=== PATIENT | male | born 1980 | race Caucasian/White ===

== ENCOUNTER 2025-08-07 05:03 | Day surgery (SDC) | payer OTHER, SELFPAY ==
[2025-08-07] VITALS (22 sets, daily range): BP systolic 124–162; BP diastolic 72–92; PULSE 46–82; RESP 10–18; TEMP 36.1–36.7; O2SAT 92–99; BMI 34.6
--- OUTSIDE RECORDS SUMMARY | 2025-08-07 05:07 | XMS_ITS | Clinical Summary ---
Author Organization [facility] Address [address] [place] [id number] Care Team Providers Care Facilities Manager Name Role Phone Fanta Nayak MD Primary Care Provider Allergies Active Allergy Reactions Criticality Noted Date Comments Amoxicillin Shortness Of Breath Unknown 04/15/2013 Medications sertraline 100 mg tabletIndication s:Anxiety,Depres scout, recurrent Take 1 Tablet (100 mg) by mouth once daily. 93 Tablet 3 5 Active traZODone 50 mg tabletIndication s:Sleeping difficulty Take 1 Tablet (50 mg) by mouth at bedtime. 93 Tablet 3 5 Active sildenafiL (pulm.hypertensi on) 20 mg tabletIndication s:Erectile dysfunction of organic origin TAKE 1-5 TABLETS BY MOUTH 30 MINUTES TO 4 HOURS BEFORE SEXUAL ACTIVITY. MAX 100 MG/24 HOURS 45 Tablet 3 5 Active sertraline 50 mg tabletIndication s:Anxiety,Depres scout, recurrent Take 1 Tablet (50 mg) by mouth once daily in the morning. Take together with 100 mg daily for a total of 150 mg daily. 93 Tablet 3 5 Active Active Problems Problem Noted Date Diagnosed Date Class 2 severe obesity with body mass index (BMI) of 35 to 39.9 with serious comorbidity 10/04/2023 Anxiety 08/25/2015 Depression, recurrent 08/03/2014 Resolved Problems Problem Noted Date Diagnosed Date Resolved Date Anxiety state, unspecified 04/15/2013 0 10/04/2023 Immunizations Immunization Administration Dates Next Due AMB Influenza, IIV4 PF (=>6 mos Flulaval,Fluzone Fluarix)(Flu Clinic Only) 07/11/2020 COVID-19 VACCINE SPIKEVAX (M ODERNA 50MCG/0.5ML) 12YO+ PFS 01/27/2025,10/04/2023 COVID-19 vaccine (Months Of MeBio NTech 30mcg/0.3mL) 12YO+ BIVALENT PF, MDV 07/02/2022 COVID-19 vaccine (Pfizer-Bio NTech 30mcg/0.3mL) PF, MDV 12/29/2020,12/08/2020 Influenza, IIV4 10/04/2023, 2,06/08/2021,2018 Rabies Vaccine 06/01/2013, 3,05/21/2013,2012 Td (Age >=7 Years) 03/27/2019 Tdap 05/28/2006 Family History Medical History Relation Name Comments No Known Problems Brother 1 No Known Problems Brother 2 Good Health Father born 1954 No Known Problems Maternal Grandfather No Known Problems Maternal Grandmother Cancer-breast Mother born 1955 Cancer-colon Mother Other Mother 3 ppd smoking h istory Psychiatric illness Mother Anxiety Rectal cancer Mother Cancer Paternal Grandfather Lymph Other Paternal Grandfather asbesto s exposure Stroke Paternal Grandmother No Known Problems Sister Relation Name Status Comments Brother 1 Brother 2 Father Alive Maternal Grandfather Maternal Grandmother Mother Paternal Grandfather Paternal Grandmother Sister Social History Tobacco Use Types Packs/Day Years Used Date Smoking Tobacco: Never Smokeless Tobacco: Never Tobacco Cessation:Counseling Given: Yes Alcohol Use Standard Drinks/Week Comments Yes 0 (1 standard drink = 0.6 oz pur e alcohol) occassionally PHQ-2 Answer Date Recorded PHQ-2 TOTAL SCORE 3 01/27/2025 Social Connections Answer Date Recorded Do you often feel lonely or isolated from those around you? 0 01/27/2025 Financial Resource Strain Answer Date R ecorded Difficulty of Paying Living Expenses 3 01/27/2025 Difficulty of Paying Living Expenses Not on file 01/27/2025 Food Insecurity Answer Date Recorded Do you worry your food will run out before you are able to buy more? 1 01/27/2025 Transportation Needs Answer Date Record ed Does lack of transportation keep you from medica l appointments? 1 01/27/2025 Does lack of transportation keep you from work, meetings or getting things that you need? 1 01/27/2025 Housing Stability Answer Date Recorded What is your housing situation today? 1 01/27/2025 Utilities Answer Date Recorded Do you have trouble paying f or utilities (for example, heat, electricity, water, phone)? 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 Not on file Not on file Not on file Obstetrics History Last Filed Vital Signs Vital Sign Reading Time Taken Comments Blood Pressure 116/68 01/27/2025 8:14 AM CDT Pulse 57 01/27/2025 8:14 AM CDT Temperature 36.5 C (97.7 F) 07/02/2022 11:41 AM CDT Respiratory Rate 15 12/19/2021 5:30 PM CDT Oxygen Saturation 97% 01/27/2025 8:14 AM CDT Inhaled Oxygen Concentration - - Weight 117.2 kg (258 lb 6.4 oz) 01/27/2025 8:14 AM CDT Height 183.5 cm (6' 0.24) 10/04/2023 2:45 PM CS T Body Mass Index 34.81 10/04/2023 2:45 PM FARM OPERATIONS TECHNICAL DIRECTOR Plan of Treatment Health Maintenance Due Date Last Done Comments Hepatitis B series for 19+ ( 1 of 3 - 19+ 3-dose series) 1999 Pneumococcal series for age 6-49 (1 of 2 - PCV) 1999 HPV series for age 9-45 (1 - 3-dose SCDM series) 2007 BMI (ht and wt on same day) for age 18+ 10/04/2024 10/04/2023, 07/02/2022, 12/15/2021, Additional history exists Influenza Vaccine (#1) 2025 , 07/02/2022, 06/08/2021, Additional history exists Depression screening for age 12+ 01/27/2026 01/27/2025, 09/12/2022, 08/13/2022, Additional history exists Lipids for age 35-44 10/04/2028 10/04/2023, 06/08/2021, 08/29/2015, Additional history exists Tetanus booster 03/27/2029 03/27/2019, 05/28/2006 RSV vaccine for adults or (1 - 1-dose 75+ series) 2055 HIV for age 15-65 Completed 10/04/2023 Hepatitis C screening for ag e 18-79 Completed 10/04/2023 Medical Devices Implanted Type Area Critical Care Registered Nurse Device Identifier Shelf Expiration Date Model / Serial / Lot Acl Fibertape Abs Implant Implanted:Qty: 1 on 12/19/2021 by Sara Melgar MD at [facility]. Left: Knee [employer] 08/22/2026 [id number] / / [id number] Description:ACL FiberTape AB S Implant Acl Fibertag Tightrope Implant Implanted:Qty: 1 on 12/19/2021 by Sara Melgar MD at [facility]. Left: Knee [employer] 08/22/2026 [id number] / / [id number] Description:ACL FiberTag Tig htRope Implant Fiberstitch Implant, Curved With Two Polyester Implants And 2-0 Fiberwire Suture Implanted:Qty: 1 on 12/19/2021 by Sara Melgar MD at [facility]. Left: Knee [employer] 03/22/2026 [id number] / / [id number] Description:FiberStitch Impl ant, Curved with Two Polyester Implants and 2-0 FiberWire Suture Acl Fibertag Tightrope Implant Implanted:Qty: 1 on 12/19/2021 by Sara Melgar MD at [facility]. Left: Knee [employer] 09/22/2026 [id number] / / [id number] Description:ACL FiberTag Tig htRope Implant Tightrope Abs, Button Implanted:Qty: 1 on 12/19/2021 by Sara Melgar MD at [facility], [facility]. Left: Knee [employer] 11/18/2025 [id number] / / [id number] Ancr Sut [id number] Swivelock Dbl Loaded Nbr 2 Tigertail Peek - [id number] Implanted:Qty: 1 on 12/19/2021 by Sara Melgar MD at [facility], [facility]. Left: Knee [employer] 04/22/2026 [id number] C-2 / / [id number] Procedures Procedure Name Priority Date/Time Associated Diagnosis Comments ANTI HIV 1/2 Routine 10/04/2023 3:41 PM FARM OPERATIONS TECHNICAL DIRECTOR Screening for HIV (human immunodeficiency virus) ANTI HCV Routine 10/04/2023 3:41 PM FARM OPERATIONS TECHNICAL DIRECTOR Need for hepatitis C screening test LIPID PANEL W REFLEX MEASURED LDL Routine 10/04/2023 3:41 PM FARM OPERATIONS TECHNICAL DIRECTOR Dyslipidemia from Last 3 Months or Most Recently Relevant to Health Maintenance Results * (ABNORMAL) LIPID PANEL W REFLEX MEASURED LDL (10/04/2023 3:41 PM FARM OPERATIONS TECHNICAL DIRECTOR) CHOLESTEROL,TOTAL 172 100 - 199 mg/dL 10/04/2023 9:47 PM FARM OPERATIONS TECHNICAL DIRECTOR [facility] Comment: Cholesterol, Total Reference Ranges Desirable <200 mg/dL Borderline 200-239 mg/dL High >=240 mg/dL TRIGLYCERIDES 221(H) <150 mg/dL 10/04/2023 9:47 PM FARM OPERATIONS TECHNICAL DIRECTOR [facility] HDL CHOLESTEROL 38(L) >40 mg/dL 9:47 PM FARM OPERATIONS TECHNICAL DIRECTOR [facility] NON-HDL CHOLESTEROL 134 <145 mg/dl 10/04/2023 9:47 PM FARM OPERATIONS TECHNICAL DIRECTOR [facility] CHOL/HDL RATIO 4.53(H) <4.50 10/04/2023 9:47 PM FARM OPERATIONS TECHNICAL DIRECTOR [facility] LDL CHOLESTEROL 90 <=130 mg/dL 10/04/2023 9:47 PM FARM OPERATIONS TECHNICAL DIRECTOR [facility] VLDL CHOLESTEROL 44(H) <=30 mg/dL 10/04/2023 9:47 PM FARM OPERATIONS TECHNICAL DIRECTOR [facility] PROVIDER ORDERED STATUS RANDOM 10/04/2023 9:47 PM FARM OPERATIONS TECHNICAL DIRECTOR [facility] Blood BLOOD SPECIMEN / Unknown Venipuncture / Unknown 10/04/2023 3:41 PM FARM OPERATIONS TECHNICAL DIRECTOR 10/04/2023 3:42 PM FARM OPERATIONS TECHNICAL DIRECTOR Fanta Nayak MD CHEMISTRY Final Resul t Performing Organization Address [facility] Co de Phone Number [facility] [address] [place] [id number], [place] * ANTI HCV (10/04/2023 3:41 PM FARM OPERATIONS TECHNICAL DIRECTOR) HEPATITIS C ANTIBODY Non-Reacti ve Non-React july 10/04/2023 9:33 PM FARM OPERATIONS TECHNICAL DIRECTOR [facility] Comment:Please note, per www .CDC.gov: If a patient is known to be at high risk of HCV infection, or is symptomatic, and the physician's suspicion of HCV infection is high, HCV RNA testing is often employed and is of diagnostic value, even after an initial negative anti-HCV test result. Blood BLOOD SPECIMEN / Unknown Venipuncture / Unknown 10/04/2023 3:41 PM FARM OPERATIONS TECHNICAL DIRECTOR 10/04/2023 3:42 PM FARM OPERATIONS TECHNICAL DIRECTOR Fanta Nayak MD SEND OUTS Final Resul t Performing Organization Address [facility] Co de Phone Number [facility] [address] [place] [id number], [place] * ANTI HIV 1/2 [59821.0] (10/04/2023 3:41 PM FARM OPERATIONS TECHNICAL DIRECTOR) HIV-1/HIV-2 SCREEN Non-Reacti ve Non-Reacti ve 10/04/2023 11:01 PM FARM OPERATIONS TECHNICAL DIRECTOR [facility] Comment:HIV-1 p24 and HIV-1/ HIV-2 Ab Not Detected. Blood BLOOD SPECIMEN / Unknown Venipuncture / Unknown 10/04/2023 3:41 PM FARM OPERATIONS TECHNICAL DIRECTOR 10/04/2023 3:42 PM FARM OPERATIONS TECHNICAL DIRECTOR us Fanta Nayak MD SEND OUTS Final Resul t [facility] [address] [place] [address], [place] from Last 3 Months or Most Recently Relevant to Health Maintenance Insurance [facility] Advance Directives * Full Code (Latest Code Status on File) Date Activated Date Inactivated Comments 12/19/2021 7:46 AM 12/19/2021 9:33 PM Question Answer Comments Code Status Discussion: Reviewed Preferences Care Teams Facilities Manager Relationship Specialty Start Date End Date Fanta Nayak MD [address] [place] [address] PCP - General Family Practice 10/01/24
--- NOTE | 2025-08-07 05:11 | CRLHL7_ITS ---
For Patients: As a result of the Century Cures Act, medical imaging exams and procedure reports are released immediately into your electronic medical record. You may view this report before your referring provider. If you have questions, please contact your health care provider. INDICATION: Abdominal pain with nausea and vomiting. COMPARISON: None. TECHNIQUE: CT of the abdomen and pelvis with intravenous contrast. Multiplanar axial, coronal, and sagittal reformats were reconstructed. Contrast: 126 mL Isovue 370. FINDINGS: Lung bases: Normal. Liver: Normal. No mass. Gallbladder and bile ducts: The gallbladder is distended. Questionable gallbladder wall edema. No bile duct dilation. Pancreas: Normal. Spleen: Normal. Adrenal glands: Normal. Kidneys: Normal renal size and position. Normal parenchymal enhancement. 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 No cyst or solid mass. No calculi. No urinary tract dilation. Urinary bladder: Normal. Pelvis: No cyst or mass. Vessels: Minimal atherosclerosis. Bowel: No dilated or inflamed bowel. Normal appendix. Few scattered diverticuli. No diverticulitis. Mild stool burden. Lymph nodes: No adenopathy. Peritoneum: No ascites. Abdominal wall: No hernia. Bones: No fractures. No focal worrisome bone lesions. IMPRESSION: Borderline appearance of the gallbladder. If there is right upper quadrant pain recommended gallbladder ultrasound. Please note that all CT scans at this facility use dose modulation, iterative reconstruction, and/or weight-based dosing when appropriate to reduce radiation dose to as low as reasonably achievable. Dictated by Blanca Lee MD @ 08/07/2025 5:51:25 AM (Electronically Signed)
[2025-08-07] MEDS: ONDANSETRON 2 MG/ML inj 4 MG IVP (05:15)
[2025-08-07 05:25] LABS: Appearance Urine Clear (Clear)
[2025-08-07 05:28] LABS: Hematocrit* 44.9 % (37.0-53.0); Hemoglobin* 15.3 gm/dL (13.5-17.5); Immature Granulocytes Abs Auto 0.17 K/uL (0.00-0.30); Immature Granulocytes Pct Auto 1.6 %; Mean Corpuscular HGB Conc 34 gm/dL (32-36); Mean Corpuscular Hemoglobin 29 pg (26-34); Mean Corpuscular Volume 85 fL (80-100); RDW Coefficient of Variation % 13.1 % (11.5-15.5); Red Blood Count* 5.28 m/uL (4.30-5.90); White Blood Count* 10.31 K/uL (4.50-11.00)
--- NOTE | 2025-08-07 05:36 | ED_ITS ---
HPI - Abdominal Pain General Chief Complaint: Abdominal Pain Stated Complaint: abdominal pain, vomiting Time Seen by Provider: 08/07/25 05:29 History of Present Illness HPI narrative: Patient is a 44-year-old gentleman who awoke of sleep tonight with epigastric pain. The pain radiates through to his back. He has no chest pain shortness a breath orthopnea. He has had some significant nausea as well. He has no reflux symptoms no chills no changes bowel or bladder. No change in his diet. He has had no similar symptoms previously. Pain is 6/10 primarily felt in the epigastrium with radiation posteriorly. Related Data Allergies Allergy/AdvReac Type Severity Reaction Status Date / Time amoxicillin Allergy Mild Shortness Verified 08/07/25 05:43 of Breath Review of Systems Status of ROS Reports: 10 or more systems reviewed and unremarkable except as noted in History and below [facility] Medical History Depression ?F32.A - Depression, unspecified (ICD-10) Anxiety ?F41.9 - Anxiety disorder, unspecified (ICD-10) Surgical History History of tonsillectomy ?Z90.89 - Acquired absence of other organs (ICD-10) History of knee surgery ?Z98.890 - Other specified postprocedural states (ICD-10) History of ankle surgery ?Z98.890 - Other specified postprocedural states (ICD-10) Social History Smoking Status: Never smoker Second hand tobacco smoke exposure: No How often do you have a drink containing alcohol: monthly or less AUDIT-C Alcohol total score: 1 Non-prescribed substance use: marijuana (any form) Exam Narrative: Exam Narrative: EXAM GENERAL: Patient appears uncomfortable but in no acute distress. EYES: No scleral icterus. ENT: Tympanic membranes and oropharynx normal. THYROID: no thyroid nodules or thyromegaly. LYMPH: No supraclavicular or cervical lymphadenopathy. SKIN: Visible skin seen during exam normal or with benign process only. EXT: No dependent lower extremity pedal edema. HEART: Regular rate and rhythm with no murmurs, rubs, or gallops. LUNGS: Clear to auscultation bilaterally with no crackles or wheezes. ABD: Soft, non tender, non distended. PSYCH: Good eye contact, speech is not pressured. Const: Vital Signs, click to edit/add: Vital Signs - 24 hr 08/07/25 05:08 Temperature 98.0 F Pulse Rate [Right Pulse Oximeter] 60 Respiratory Rate 18 Blood Pressure [Ri ght Upper Arm] 162/78 H Pulse Oximetry 99 Oxygen Delivery Me thod Room Air Course Course ED Course: CBC comprehensive metabolic panel lipase CT abdomen pelvis troponin D-dimer pending. 1 L normal saline 30 mg Toradol GI cocktail given. Vital Signs Vital signs: Initial Vital Signs Temperature 98.0 F 08/07/25 05:08 Temperature Source Temporal Artery Scan 08/07/25 05:08 Pulse Rate 60 08/07/25 05:08 Respiratory Rate 18 08/07/25 05:08 Blood Pressure 162/78 H 08/07/25 05:08 Blood Pressure Mean 106 H 08/07/25 05:08 Blood Pressure Position Supine 08/07/25 05:08 Pulse Oximetry 99 08/07/25 05:08 Oxygen Delivery Method Room Air 08/07/25 05:08 Vital Signs Temperature 98.0 F 08/07/25 05:08 Pulse Rate 60 08/07/25 05:08 Respiratory Rate 18 08/07/25 05:08 Blood Pressure 162/78 H 08/07/25 05:08 Pulse Oximetry 99 08/07/25 05:08 Oxygen Delivery Method Room Air 08/07/25 05:08 Temperature 98.0 F 08/07/25 05:08 Pulse Rate 60 08/07/25 05:08 Respiratory Rate 18 08/07/25 05:08 Blood Pressure 162/78 H 08/07/25 05:08 Pulse Oximetry 99 08/07/25 05:08 Oxygen Delivery Method Room Air 08/07/25 05:08 Medications Administered Medications: Discontinued Medications Generic Name Dose Route Start Last Admin Trade Name Freq PRN Reason Stop Dose Admin Hydromorphone HCl 0.5 mg 08/07/25 06:08 08/07/25 06:11 Hydromorphone 0.5 Mg/0.5 Ml Inj IVP 08/07/25 06:09 0.5 mg ONCE ONE Administration Sodium Chloride 1,000 mls @ 1,000 mls/hr 08/07/25 06:09 08/07/25 05:15 0.9 % Sodium Chloride 1000 Ml IV 08/07/25 07:08 1,000 mls/hr .Q1H LYUDMILA Administration Ketorolac Tromethamine 15 mg 08/07/25 06:09 08/07/25 06:13 Ketorolac 15 Mg/Ml Inj IVP 08/07/25 06:10 Not Given ONCE ONE Lidocaine/Aluminum/Magnesium/Simeth 30 ml 08/07/25 05:36 08/07/25 05:40 Gi Cocktail (Visc Lido/Antacid) 30 Ml PO 08/07/25 05:37 30 ml ONCE ONE Administration Ondansetron HCl 4 mg 08/07/25 06:10 08/07/25 05:15 Ondansetron 2 Mg/Ml Inj IVP 08/07/25 06:11 4 mg ONCE ONE Administration MDM - Abdominal Pain MDM Narrative Medical decision making narrative: Patient presents with epigastric and right upper quadrant pain of approximately 3 hours duration. He last 811 hours ago. Workup includes normal lab work but a questionable gallbladder on CT scan. Follow-up ultrasound showed thickened gallbladder wall a 2 cm stone stuck in the neck of the gallbladder multiple smaller stones hydropic gallbladder and a positive Colin sign. Patient currently NPO. General surgery contacted patient will be proceeding to cholecystectomy. Lab Data Labs: Lab Results 08/07/25 08/07/25 08/07/25 Range/Units 05:12 05:18 05:30 WBC 10.31 (4.50-11.00) K/uL RBC 5.28 (4.30-5.90) m/uL Hgb 15.3 (13.5-17.5) gm/dL Hct 44.9 (37.0-53.0) % MCV 85 (80-100) fL MCH 29 (26-34) pg MCHC 34 (32-36) gm/dL RDW Coeff of Wolfgang 13.1 (11.5-15.5) % Plt Count 212 (140-440) K/uL Neut % (Auto) 77.0 H (42.0-72.0) % Lymph % (Auto) 12.8 L (20-44) % [place] % (Auto) 7.0 (0.0-11.0) % Eos % (Auto) 1.3 (0.0-7.0) % Baso % (Auto) 0.3 (0.0-3.0) % Neut # (Auto) 7.90 H (1.7-7.0) K/uL Lymph # (Auto) 1.30 (0.90-2.90) K/uL [place] # (Auto) 0.70 (0.00-0.90) K/UL Eos # (Auto) 0.13 (0.00-0.50) K/uL Baso # (Auto) 0.03 (0.00-0.30) K/uL Abs Immat Gran (auto) 0.17 (0.00-0.30) K/uL Imm/Tot Granulo (auto) 1.6 % D-Dimer Quant (PE/DVT) 0.33 (0.00-0.50) ug/ml Sodium 139 (135-149) mmol/L Potassium 3.8 (3.6-5.1) mmol/L Chloride 100 (96-114) mmol/L Carbon Dioxide 21 (20-32) mmol/L Anion Gap 18 H (7-15) mEq/L BUN 14 (5-24) mg/dL Creatinine 1.1 (0.5-1.5) mg/dL Estimated Creat Clear 94.06 Estimated GFR 85 ml/min Glucose 90 (60-115) mg/dL Calcium 9.0 (8.4-10.6) mg/dL Total Bilirubin 0.8 (0.1-1.5) mg/dL AST 43 H (12-35) U/L ALT 30 (4-50) U/L Alkaline Phosphatase 71 (40-150) U/L Troponin I < 0.01 (0.01-0.04) ng/mL Total Protein 7.5 (6.0-8.3) g/dL Albumin 4.8 (3.3-5.0) g/dL Lipase 25 (23-300) U/L Urine Color Yellow (Yellow) Urine Appearance Clear (Clear) Urine pH 6.0 (5.0-8.5) Ur Specific Orange >= 1.030 (1.000-1.030) Urine Protein Negative (Negative) Urine Glucose (UA) Negative (Negative) Urine Ketones Negative (Negative) Urine Blood Negative (Negative) Urine Nitrite Negative (Negative) Urine Bilirubin Negative (Negative) Urine Urobilinogen 1.0 (0.2-1.0) Ur Leukocyte Esterase Negative (Negative) Urine RBC 0-2 (0-2) Urine WBC 0-2 (0-5) Ur Squamous Epith Cells None (None-Few) Urine Bacteria None (None) Discharge Plan Discharge Clinical Impression: Cholecystitis Patient Disposition: Admitted As Observation Condition: Stable Activity Level: Other Discharge Diet: Other
[2025-08-07 05:39] LABS: Lymphocytes Absolute Auto 1.30 K/uL (0.90-2.90); Slide Review Reflex No
[2025-08-07] MEDS: GI COCKTAIL (VISC LIDO/ANTACID) 30 ML PO (05:40)
[2025-08-07 05:42] LABS: Albumin* 4.8 g/dL (3.3-5.0); Potassium* 3.8 mmol/L (3.6-5.1); Sodium* 139 mmol/L (135-149)
[2025-08-07 05:45] LABS: Alanine Aminotransferase* 30 U/L (4-50); Alkaline Phosphatase* 71 U/L (40-150); Aspartate Amino Transferase* 43 U/L (12-35); Bilirubin Total* 0.8 mg/dL (0.1-1.5); Blood Urea Nitrogen* 14 mg/dL (5-24); Creatinine* 1.1 mg/dL (0.5-1.5); Est. Creatinine Clearance* 94.06; Estimated Glomerular Filt Rate 85 ml/min; Total Protein* 7.5 g/dL (6.0-8.3)
[2025-08-07 05:58] LABS: Anion Gap 18 mEq/L (7-15); Calcium* 9.0 mg/dL (8.4-10.6); Carbon Dioxide* 21 mmol/L (20-32); Chloride* 100 mmol/L (96-114); Glucose* 90 mg/dL (60-115)
--- NOTE | 2025-08-07 06:08 | CRLHL7_ITS ---
For Patients: As a result of the Century Cures Act, medical imaging exams and procedure reports are released immediately into your electronic medical record. You may view this report before your referring provider. If you have questions, please contact your health care provider. INDICATION: Pain COMPARISON: Same day CT abdomen pelvis TECHNIQUE: Duval-scale and color Doppler ultrasound of the gallbladder and bile ducts FINDINGS: The gallbladder is distended. There is a 2 centimeter shadowing calculus at the gallbladder neck. Gallbladder wall thickness is 4 millimeters. The gallbladder wall is echogenic. Trace pericholecystic fluid. Positive sonographic Colin`s sign. No extrahepatic biliary ductal dilatation. The common bile duct measures 4 millimeters. Incidentally noted hepatic steatosis with some focal sparing around the gallbladder fossa. IMPRESSION: Cholelithiasis and acute cholecystitis. Dictated by Blanca Lee MD @ 08/07/2025 7:12:04 AM (Electronically Signed)
[2025-08-07 06:50] LABS: D Dimer Quantitative* 0.33 ug/ml (0.00-0.50)
[2025-08-07] MEDS: LACTATED RINGERS 1000 ML 1,000 ML 125 ML IV ×2 (10:11→11:30)
--- NOTE | 2025-08-07 10:12 | PM.GSHP ---
History of Present Illness History of Present Illness Date Seen: 08/07/25 Chief complaint: abdominal pain, vomiting Narrative: Mirza Dotson is a 44 year old male Presented to the emergency department last night with severe abdominal pain, nausea and vomiting. He has had similar pain like this in the past, but never this severe and usually went away. He did have a more rich dinner last night of meat loaf and potatoes. He is otherwise healthy. Nonsmoker. Occasional alcohol use. 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 Review of Systems Status of ROS: Reports: 10 or more systems reviewed and unremarkable except as noted in History and below [facility] Medical History Depression ?F32.A - Depression, unspecified (ICD-10) Anxiety ?F41.9 - Anxiety disorder, unspecified (ICD-10) Surgical History History of tonsillectomy ?Z90.89 - Acquired absence of other organs (ICD-10) History of knee surgery ?Z98.890 - Other specified postprocedural states (ICD-10) History of ankle surgery ?Z98.890 - Other specified postprocedural states (ICD-10) Social History Smoking Status: Never smoker Second hand tobacco smoke exposure: No How often do you have a drink containing alcohol: monthly or less AUDIT-C Alcohol total score: 1 Non-prescribed substance use: marijuana (any form) Meds Home Medications and Allergies Allergies Allergy/AdvReac Type Severity Reaction Status Date / Time amoxicillin Allergy Mild Shortness Verified 08/07/25 05:43 of Breath Exam Narrative: Exam Narrative: General: Alert and oriented, no acute distress. Respiratory: Equal breath rise bilaterally, maintained on room air CV: Work well perfused, regular rhythm and rate Abdomen: Soft, tender to palpation right upper quadrant, no guarding or rebound. Nondistended. Const: Vital Signs, click to edit/add: Vital Signs - 24 hr 08/07/25 05:08 08/07/25 07:00 08/07/25 07:16 Temperature 98.0 F Pulse Rate 46 L Pulse Rate [Right Pulse Oximeter] 60 Respiratory Rate 18 Blood Pressure Blood Pressure [Ri ght Upper Arm] 162/78 H Pulse Oximetry 99 97 97 Oxygen Delivery Me thod Room Air 08/07/25 07:30 08/07/25 07:45 08/07/25 08:00 Temperature Pulse Rate 52 L 58 L 56 L Pulse Rate [Right Pulse Oximeter] Respiratory Rate Blood Pressure Blood Pressure [Ri ght Upper Arm] Pulse Oximetry 96 96 95 Oxygen Delivery Me thod 08/07/25 08:15 08/07/25 08:30 08/07/25 08:31 Temperature Pulse Rate 58 L 74 72 Pulse Rate [Right Pulse Oximeter] Respiratory Rate Blood Pressure 139/90 H Blood Pressure [Ri ght Upper Arm] Pulse Oximetry 96 96 96 Oxygen Delivery Me thod Results Results Labs: Labs within normal limits, LFTs within normal limits. No leukocytosis. Abdomen CT scan report/results: report reviewed and image reviewed Abdominal ultrasound report/results: report reviewed and image reviewed Progress Note:A&P Assessment and plan (1) Cholecystitis: Status: Acute Assessment and Plan: Patient presents with clinical workup and symptoms consistent with acute cholecystitis. LFTs are within normal limits, no concern for choledocholithiasis. I had a detailed conversation with the patient regarding the diagnosis of acute cholecystitis. We discussed the treatment options including observation with diet modification and laparoscopic cholecystectomy. We discussed the risks of surgery (including but not limited to) the risks of bleeding, infection, injury to other structures in the abdomen including bile duct injury, bile leak and conversion to an open operation. We discussed the possibility that the patient's pain not improve with surgery. We discussed the possibility of permanent post-operative diarrhea that may require medical management. Additionally, the conceivably of complications requiring additional surgery or further hospitalization were also discussed including the risks of MT, respiratory failure, stroke and blood clots. The patient voiced an understanding of our conversation, had the opportunity to ask questions, agreed to accept the risks of surgery and asked that we proceed with surgery. Plan OR for laparoscopic cholecystectomy
[2025-08-07] MEDS: CIPROFLOXACIN 400 MG/200 ML inj IVPB (10:24)
[2025-08-07] MEDS: metroNIDAZOLE 500 MG/100 ML for IV IVPB (10:38)
--- NOTE | 2025-08-07 11:30 | P.GSOP_ITS ---
Operative Note Date of procedure: 08/07/25 Pre-op diagnosis: Acute cholecystitis Post-op diagnosis: Same Type of Procedure: Laparoscopic cholecystectomy Indications: Patient is a 44-year-old male presented to the emergency department with clinical workup and symptoms consistent with acute cholecystitis. Risks and benefits of operative intervention were discussed at length with the patient. Risks included but was not limited to: Bleeding, infection, risk of damage to surrounding structures, possible need for additional procedures, possible need to convert to an open operation and postoperative complications such as pneumonia, pulmonary emboli or [place]. All questions and concerns were addressed with the patient agreeing to proceed. Procedure Description: After discussing the risks and benefits of the procedure, the patient signed informed consent.? The operative site was marked and the patient was brought to the operating room and placed on the operating table in supine position.? Care was taken to pad the patient's pressure points.?? The patient was then intubated by anesthesia.?? The operative site was then prepped and draped in the usual sterile fashion.? A time-out was then performed. Entrance to the abdomen was gained via a 5 mm Visiport in the left upper quadrant. The abdomen was insufflated and briefly surveyed for signs of injury, there was none. An 11 mm umbilical port was placed as well as 2 working ports along the right costal margin. Patient was then placed in reverse Trendelenburg position with the right side up. The gallbladder was distended and edematous. 60 mL of bilious fluid was removed with a laparoscopic needle. This allowed the fundus to be grasped and retracted cephalad. A small amount of dissection was needed to free omental adhesions from the gallbladder. The infundibulum was grasped. A combination of hook cautery and blunt dissection was used to carefully dissect out the cystic duct and artery until they could clearly be seen entering the gallbladder without any intervening structures. The gallbladder was dissected off the cystic plate to achieve the critical view. The cystic artery branched onto the top of the gallbladder and posteriorly. I placed 2 clips proximally and 1 clip distally onto the anterior branch of the cy stic artery before it was transected with scissors. Three clips were placed proximally on the cystic duct and 1 clip distally and it was transected with scissors in a similar manner. The gallbladder was then carefully taken off of the hepatic fossa. High up on the gallbladder, near the fundus was the posterior branch of the cystic artery. Two clips were applied proximally and 1 clip distally at this location before it was transected with scissors to allow for complete dissection of the gallbladder off of the liver bed. The gallbladder was then removed from the abdomen using an Endo-Catch bag. The gallbladder bed was surveyed for hemostasis, which was excellent. A small amount of bile which had spilled was suctioned from the abdomen. The laparoscopic equipment was removed and the umbilical port fascia was closed with 0 Vicryl. A 2nd look in the abdomen ensured there was no entrapped omentum or bowel underneath this closure. The ports on the right side were then removed under di rect vision. The left upper quadrant port was used to evacuate the CO2. The skin was closed with absorbable subcuticular suture. Instrument sponge and needle counts were correct at the end of the case. The patient was then woken and transferred to the PACU in stable condition. Findings: Edematous and inflamed gallbladder consistent with acute cholecystitis. Anesthesia: GETA Surgeon: Sharifa Boles MD Estimated blood loss (mL): 20 Specimen: Gallbladder Condition: stable Disposition: PACU
--- NOTE | 2025-08-07 11:50 | P.ANES_ITS ---
Anesthesia Charges Start Date/Time Anesthesia Start Date: 08/07/25 Anesthesia Start Time: 10:10 Stop Date/Time Anesthesia Stop Date: 08/07/25 Anesthesia Stop Time: 11:46 Coding CPT Codes CPT Codes: ANESTH SURG UPPER ABDOMEN - 72726 ([id number]) P1 - NORMAL HEALTHY PATIENT, QZ - REHAB PHYSICIAN SVC W/O SEARCH ENGINE MARKETING STRATEGIST BY
--- NOTE | 2025-08-07 11:50 | W.ANESCHARGE ---
Anesthesia Charges Start Date/Time Anesthesia Start Date: 08/07/25 Anesthesia Start Time: 10:10 Stop Date/Time Anesthesia Stop Date: 08/07/25 Anesthesia Stop Time: 11:46 Coding CPT Codes CPT Codes: ANESTH SURG UPPER ABDOMEN - 69520 ([id number]) P1 - NORMAL HEALTHY PATIENT, QZ - SANITARY PLUMBER SVC W/O COCONUT CANDY MAKER BY
[2025-08-07] MEDS: ACETAMINOPHEN 325 MG TABLET 650 MG PO (14:46)
== END 2025-08-07 17:11 | disposition home or self-care (01) ==
LOC: ED 07:28 → SS 07:38 → MEDSURG 15:07
PROVIDERS: Emergency Provider Internal Medicine; PCP Family Medicine; Visit Provider Surgery
PROC: 0FT44ZZ Resection of Gallbladder, Percutaneous Endoscopic Approach (ICD-10-PCS; CPT 47562; principal; 2025-08-07 10:00)
DX: K80.00 Calculus of gallbladder with acute cholecystitis without obstruction (principal)
CPT/HCPCS: 47562; 00790; 36415; 74177; 76705; 80053; 81001; 83690; 84484; 85025; 85379; 93005; 94761; 99283; 99285; A9270; J0330; J0744; J1100; J1171; J1630; J1836; J1885; J2250; J2371; J2405; J2704; J3010; J3490; J7030; J7120; Q9967